=== PATIENT | female | born 1990 | race Caucasian/White ===

== ENCOUNTER 2016-07-16 10:43 | Emergency (ER) | payer BC ==
[~2016-07-16] VITALS: Ht 172.7 cm; Wt 60.8 kg
[~2016-07-16 10:43] MED LIST: AZIT250T6 PO; IBUP-1546 PO; [UNRECOGNIZED DRUG - OTHER]
[2016-07-16 10:45] VITALS: Ht 172.7 cm; Wt 60.8 kg
--- NOTE | 2016-07-16 11:00 | NUR ---
HANDOFF REPORT Report to German RN, care assumed
[2016-07-16] MEDS ORDERED: [UNRECOGNIZED DRUG - CODE] PO (11:15)
--- NOTE | 2016-07-16 11:16 | ERPDOC ---
Departure Disposition Decision Date: Jul 16, 2016 Disposition Decision Time: 14:27 Disposition: 01 DISCHARGED HOME, SELF-CARE Impression Impression Impression: Primary Impression: Pyelonephritis Severity: Moderate Condition: Stable Seen By: Physician only Referrals: FLORECITA MORRIS (PCP/Family) Patient Instructions: Kidney Infection (ED) Problems/Meds/Labs Reviewed?: Yes Medications reviewed and manag: Yes Additional Instructions: Follow-up if not improving in 48 hours Departure Forms: Return to Work/School Permit Return to Work/School Date: Jul 18, 2016 Follow up care ordered?: Yes Mental Status: Alert, Oriented Scripts Ondansetron (Zofran Odt) 4 Mg Tab.rapdis 4 MG PO Q6HR Y for NAUSEA &/OR VOMITING, #12 TAB Oral disintegrating tablet Prov: QUENTIN DIXON MD 07/16/16 Hydrocodone/Acetaminophen ([place]oy 5-325 Tablet) 5-325 Tablet 1-2 TAB PO Q6H Y for PAIN, #15 TAB Prov: QUENTIN DIXON MD 07/16/16 Ciprofloxacin HCl (Ciprofloxacin HCl) 500 Mg Tablet 500 MG PO BID for 7 Days, 0 Refills Prov: QUENTIN DIXON MD 07/16/16 HPI - Abdominal Pain General Chief Complaint: Nausea,Vomiting,Diarrhea Stated Complaint: VOMITTING Time Seen by Provider: 11:16 Source: patient, family History/Exam Limitations: no limitations HPI - Abdominal Pain Initial Comments Patient is a 25-year-old female presents emergency room for evaluation of nausea and vomiting abdominal pain. Patient ate [place] food noon yesterday and then at 4 PM ate at leftovers. Approximately 10 PM patient started developing nausea and vomiting with abdominal pain. Patient has vomited all evening, unable to keep down any food or fluids the patient this morning side effects of the ER for evaluation Occurred At: home Onset: Rapid Duration: 12-24 hrs Pain Scale: Now & Worst: 4/10 Allergies: Coded Allergies: No Known Allergies (Unverified , 07/16/16) Past History Past Medical History Female: UTI Surgical History Denies Surgeries Family History Family PMH: FOUND: cancer Vaccines Hx Influenza Vaccination: Yes (03/02) Social History Smoking Status: Never smoker Second Hand Exposure: No Substance Use Type: does not use Alcohol Intake: occasionally Sexuality: male partner Review of Systems Constitutional Constitutional: appetite decrease, weakness, DENIES: chills, dizziness, fever Eyes Vision: DENIES: loss of visual greene ENMT Sinuses: DENIES: congestion, rhinorrhea Mouth/Throat: DENIES: scratchy throat, sore throat Cardiovascular Cardiac: DENIES: chest pain, dyspnea on exertion Pulmonary Respiratory: DENIES: cough, dyspnea, sputum, tachypnea GI Upper Abdomen: nausea, vomiting, DENIES: pain Lower Abdomen: DENIES: constipation, diarrhea, pain General: DENIES: frequency Musculoskeletal General: DENIES: cramps, pain, weakness Integumentary Skin: DENIES: color change, itching, rash Endocrine Endocrine: DENIES: heat/cold intolerance Hematologic/Lymphatic Hematologic/Lymphatic: DENIES: anemia Physical Exam General General Nourishment: well nourished, well developed General Body Habitus: well groomed Vitals and Pain Weight: Kilograms: 60.800 Height (feet): 5 Height (inches): 8.00 Triage Pain Scale: RN VS reviewed by Provider: Yes Eyes (brief) Eyes Brief: found: EOMI ENMT (brief) ENMT Brief: FOUND: mucosa moist, normal dentition, NOT FOUND: nasal erythema, pharnyx erythema, tonsillar deviation Neck (brief) Neck: NOT FOUND: adenopathy, spasm, tenderness Respiratory (brief) Respiratory: FOUND: clear all greene, equal bilaterally, NOT FOUND: rales, wheezes Cardiovascular (brief) Cardiac: FOUND: regular rate, regular rhythm Capillary Refill: <2 sec Abdomen (brief) Abdominal Brief: FOUND: bowel normo active x4, soft, tender (mild epigastric and right upper quadrant tenderness), NOT FOUND: distended Lymphatic (brief) Lymphatic Brief: NOT FOUND: adenopathy Musculoskeletal (brief) Musculoskeletal Brief: NOT FOUND: spasm, tenderness Integumentary (brief) Integumentary Brief: FOUND: dry, pink, warm, NOT FOUND: rash Neurologic (brief) Neurological Brief: FOUND: CN w/o gross def to obs, motor-no gross deficits, sensory-no gross deficits Psychiatric (brief) Psychiatric Brief: FOUND: alert, oriented Differential Diagnoses Considering: Achalasia, Appendicitis, Dehydration, Diverticulitis, Food Poisoning, Gastroenteritis, Hyponatremia, Hypokalemia, Hypoglycemia, Pancreatitis, Pneumonia, Pyelonephritis, UTI, Sigmoid Volvulus, Cecal Volvulus Progress Results/Orders Orders Procedure Category Date Status Time Iv Lock (Ed Only) EDM 07/16/16 Transmitted 11:18 Nothing By Mouth (Ed EDM 07/16/16 Transmitted Only) 11:18 Cbc W/Auto LAB 07/16/16 Complete Diff-Reflex Manual 11:18 Cmp - Comprehensive LAB 07/16/16 Complete Metabolic 11:18 Lipase LAB 07/16/16 Complete 11:18 Ua, Dip Wreflex LAB 07/16/16 Complete Microsc & [facility] [place] Assessor 11:18 LAB 07/16/16 Complete Qualitative, Urine 11:18 Morphine Sulfate PHA 07/16/16 Complete (Morphine) 11:30 Ondansetron Inj PHA 07/16/16 Complete (Zofran) 11:30 Normal Saline (Normal PHA 07/16/16 Complete Saline Iv) 11:30 Us Gallbladder US 07/16/16 Resulted 11:50 Morphine Sulfate PHA 07/16/16 Complete (Morphine) 13:30 Ct Abd/Pelvis CT 07/16/16 Resulted W/Contrast Only 13:22 Iohexol (Omnipaque) PHA 07/16/16 Complete 13:41 Normal Saline (Ns) PHA 07/16/16 Complete 13:41 Saline Flush (Iv PHA 07/16/16 Complete Flush) 13:41 Lab Results Laboratory Tests Test 07/16/16 11:11 07/16/16 11:43 White Blood Count 8.9T/MM3 Red Blood Count 4.24M/MM3 Hemoglobin 13.7GM/DL Hematocrit 41.7% Mean Corpuscular Volume 98.3UM3 Mean Corpuscular Hemoglobin 32.3UUG Mean Corpuscular Hemoglobin Concent 32.9GM/DL RDW Standard Deviation 42.2FL Platelet Count 276T/MM3 Mean Platelet Volume 11.1UM3 Immature Granulocyte % (Auto) % Neutrophils (%) (Auto) % Lymphocytes (%) (Auto) % Monocytes (%) (Auto) % Eosinophils (%) (Auto) % Basophils (%) (Auto) % Absolute Immature Granulocyte (auto T/MM3 Absolute Neutrophils (auto) T/MM3 Absolute Lymphocytes (auto) T/MM3 Absolute Monocytes (auto) T/MM3 Absolute Eosinophils (auto) T/MM3 Absolute Basophils (auto) T/MM3 Neutrophils % (Manual) 88.0% Band Neutrophils % 9.0% Monocytes % (Manual) 2.0% Eosinophils % (Manual) 1.0% Absolute Neutrophils (Manual) 7.8T/MM3 Band Neutrophils # 0.8T/MM3 Monocytes # (Manual) 0.2T/MM3 Eosinophils # (Manual) 0.1T/MM3 Red Cell Morphology Comment Normal Turbidity < 20 Sodium Level 138MEQ/L Potassium Level 3.8MEQ/L Chloride Level 105MEQ/L Carbon Dioxide Level 24MEQ/L Anion Gap 9MEQ/L Blood Urea Nitrogen 15.0MG/DL Creatinine 0.6MG/DL Glomerular Filtration Rate Calc 121 BUN/Creatinine Ratio 25RATIO Glucose Level 96MG/DL Calculated Osmolality 267MOSM/KG Calcium Level 8.9MG/DL Total Bilirubin 0.90MG/DL Icterus Index < 2 Aspartate Amino Transf (AST/SGOT) 24U/L Alanine Aminotransferase (ALT/SGPT) 25U/L Alkaline Phosphatase 63U/L Total Protein 7.2G/DL Albumin 4.1G/DL Globulin 3.1G/DL Albumin/Globulin Ratio 1.3RATIO Lipase 99U/L Chemistry Specimen Hemolysis < 15 Urine Collection Type Voided-not cc-midstr Urine Color Yellow Urine Turbidity Clear Urine pH 7.0 Urine Specific [place] 1.020 Urine Protein Negative Urine Glucose (UA) Negative Urine Ketones Negative Urine Blood Negative Urine Nitrite Negative Urine Bilirubin Negative Urine Urobilinogen 0.2EU/DL Urine Leukocyte Esterase Negative Urinalysis Comment Microscopic not ind. Urine Test Negative Medications Current ED Medications Morphine Sulfate (Morphine) 4 mg O ONCE IV Last administered on 07/16/16 11: 40; Start 07/16/16 at 11:30; Stop 07/16/16 at 11:31; Status DC Ondansetron HCl 4 mg 4 mg O ONCE IV Last administered on 07/16/16 11:33; Start 07/16/16 at 11:30; Stop 07/16/16 at 11:31; Status DC Sodium Chloride (Normal Saline IV) 1,000 ml @ 999 mls/hr Q1H1M ONCE IV Last administered on 07/16/16 11:31; Start 07/16/16 at 11:30; Stop 07/16/16 at 12:30 ; Status DC Morphine Sulfate (Morphine) 4 mg O ONCE IV Last administered on 07/16/16 13: 48; Start 07/16/16 at 13:30; Stop 07/16/16 at 13:31; Status DC Iohexol 1 bottle 1 bottle STK-MED ONCE .ROUTE ; Start 07/16/16 at 13:41; Stop at 13:42; Status DC Sodium Chloride (NS) 100 ml @ As Directed STK-MED ONCE .ROUTE ; Start 07/16/16 at 13:41; Stop 07/16/16 at 13:42; Status DC Sodium Chloride (Iv Flush) 10 ml STK-MED ONCE .ROUTE ; Start 07/16/16 at 13:41; Stop 07/16/16 at 13:42; Status DC CT CT : CT: Abd/Pelvis IV contrast Interpretation: Abnormal, Reviewed Written Report (pyelonephritis) Ultrasound US : Ultrasound: Gallbladder US Interpretation: Normal, Reviewed Written Report QUENTIN DIXON MD Jul 16, 2016 11:16
[2016-07-16 11:26] LABS: HCT - HEMATOCRIT 41.7 % (36-46); HGB - HEMOGLOBIN 13.7 GM/DL (12-16); MEAN CORPUSCULAR HGB 32.3 UUG (26-34); MEAN CORPUSCULAR HGB CONC(MCHC 32.9 GM/DL (31-37); MEAN CORPUSCULAR VOLUME 98.3 UM3 (80-100); MEAN PLATELET VOLUME 11.1 UM3 (9.4-12.4); RED BLOOD COUNT 4.24 M/MM3 (4.00-5.20); WBC - WHITE BLOOD COUNT 8.9 T/MM3 (4.5-11.0)
[2016-07-16] MEDS ORDERED: NORMAL SALINE 1,000 ML IV ONE (11:30)
[2016-07-16] MEDS ORDERED: MORPHINE SULFATE 4 MG SYRINGE IV ONE ×2 (11:30→13:30)
[2016-07-16] MEDS ORDERED: ONDANSETRON 4mg/2ml INJECTION IV ONE (11:30)
[2016-07-16 11:32] LABS: ALBUMIN 4.1 G/DL (3.5-5.0); ALBUMIN/GLOBULIN RATIO 1.3 RATIO (1.1-2.2); ALKALINE PHOSPHATASE 63 U/L (38-126); ALT (SGPT) 25 U/L (9-52); ANION GAP 9 MEQ/L (5-15); AST (SGOT) 24 U/L (14-36); BUN/CREATININE RATIO 25 RATIO (6-26); CALCIUM 8.9 MG/DL (8.4-10.2); CHLORIDE 105 MEQ/L (98-107); CO2 - CARBON DIOXIDE 24 MEQ/L (22-30); CREATININE 0.6 MG/DL (0.7-1.2); GLOMERULAR FILTRATION RATE 121; GLUCOSE 96 MG/DL (65-110); LIPASE 99 U/L (23-300); POTASSIUM 3.8 MEQ/L (3.6-5); SODIUM 138 MEQ/L (134-144); TOTAL PROTEIN 7.2 G/DL (6.3-8.2)
[2016-07-16 11:40] LABS: BAND NEUTROPHILS # 0.8 T/MM3; EOSINOPHILS # (MANUAL) 0.1 T/MM3 (0-0.5); MONOCYTES # (MANUAL) 0.2 T/MM3 (0-0.8); NEUTROPHILS #(MANUAL)-ABSOLUTE 7.8 T/MM3 (1.8-7.7); TOTAL CELLS COUNTED 100 %
[2016-07-16 11:54] LABS: BLOOD, URINE NEGATIVE (NEGATIVE); COLOR,URINE YELLOW (YELLOW); LEUKOCYTE ESTERASE ,URINE NEGATIVE (NEGATIVE); NITRITE,URINE NEGATIVE (NEGATIVE); UROBILINOGEN,URINE 0.2 EU/DL (NORMAL)
--- NOTE | 2016-07-16 12:34 | NUR ---
corneliuso rodger in room w/ pt.
--- NOTE | 2016-07-16 13:06 | DI ---
Indication: ITS.REASON: right upper quadrant pain nausea vomiting, bandemia PROCEDURE: US GALLBLADDER: Encounter: Initial Comparison: None Technique: Grayscale and color Doppler sonographic imaging of the right upper quadrant of the abdomen was performed. Findings: Hepatic parenchyma is homogeneous without evidence for focal mass. The gallbladder is not definitely distended. There is no wall thickening or pericholecystic fluid. However, a positive sonographic Plummer's sign is noted. Both the intra and extrahepatic biliary system are of normal caliber with the common duct measuring 3.6 mm in dimension. Visualized portions of the head and body of the pancreas are unremarkable. The pancreatic duct is identified and measures 1.5 mm which is normal. The right kidney is present without collecting system dilatation. The right kidney measures 11.1 cm in length. Impression: No definite gallbladder wall thickening or internal stones or pericholecystic fluid with positive sonographic Plummer's sign which is of unclear significance. .
[2016-07-16] MEDS ORDERED: SALINE FLUSH 10ml SYRINGE ONE (13:41)
[2016-07-16] MEDS ORDERED: IOHEXOL 300 MG/ML 100ml INJECTION ONE (13:41)
[2016-07-16] MEDS ORDERED: NORMAL SALINE 100 ML ONE (13:41)
--- NOTE | 2016-07-16 13:47 | NUR ---
CT SCAN PT GONE TO CT SCAN.
--- NOTE | 2016-07-16 14:00 | NUR ---
CT SCAN PT BACK FROM CT SCAN.
--- NOTE | 2016-07-16 14:18 | DI ---
Indication: ITS.REASON: right flank pain normal gallbladder ultrasound PROCEDURE: CT ABD/PELVIS W/CONTRAST ONLY: Encounter: Initial Comparison: None Technique: Axial CT images were performed through the abdomen and pelvis after the administration of intravenous contrast. Coronal and sagittal two-dimensional reformats. Automated Exposure Control and Iterative Reconstruction dose reducing techniques were utilized. Contrast: Omnipaque 300 100 mL Findings: Included portions of the lung bases are clear. Heart size normal. No pleural effusion. There is a 4 mm intrarenal nonobstructing urinary calculus centrally within the right kidney. There is also some heterogeneous enhancement in the mid to upper pole suggesting some mild pyelonephritis. No hydronephrosis or perinephric stranding. There is similar but lesser striated appearance of the left kidney. The liver, spleen, pancreas, and adrenal glands are normal. The gallbladder is thin walled and nondistended, without stones. The abdominal aorta is non-aneurysmal, without significant atherosclerotic disease. There is no retroperitoneal or mesenteric adenopathy. CT PELVIS: A normal appendix is identified. No the uterus is tilted to the left. The urinary bladder is not distended. There is no pelvic sidewall adenopathy. No free fluid. No definite bony destructive process. IMPRESSION: Heterogeneous striated enhancement of the right greater the left kidney suggesting pyelonephritis with 4 mm intrarenal nonobstructing urinary calculus in the upper pole of the right kidney.. .
[2016-07-16] MEDS ORDERED: CIPR-280 PO (14:30)
[2016-07-16] MEDS ORDERED: HYDR-4246 PO (14:30)
--- NOTE | 2016-07-16 14:30 | NUR ---
STATUS PT REPORT PAIN RELIEF TO 4/10.
[2016-07-16 15:02] VITALS: BP 104/63; PULSE 79; RESP 20; TEMP 98.8; O2SAT 100
--- NOTE | 2016-07-16 15:02 | NUR ---
DISCHARGE PT GIVEN INSTRUCTIONS FOR CONT CARE OF CONDITION, W/ WORK NOTE AND RX X3 CIPRO,NORCO AND ZOFRAN. PT VERBALIZED UNDERSTANDING AND SIGNED FORM, PT LEFT ER ALERT, AMBULATORY W/O ASSIST, VS CHARTED IN NO ACUTE DISTRESS W/ PAIN RELIEVED 08/27.
[2016-07-16] MEDS ORDERED: ONDA4TAB7 PO (15:06)
== END 2016-07-16 15:02 | disposition home or self-care (01) ==
LOC: ED 10:43
DX: N12 Tubulo-interstitial nephritis, not specified as acute or chronic (principal)
CPT/HCPCS: 74177; 76705; 80053; 81003; 81025; 83690; 85025; 96361; 96374; 96375; 96376; 99284; J2405; J7030; J7050; Q9967